=== PATIENT | male | born 1950 | race Caucasian/White ===

== ENCOUNTER → 2024-10-02 11:41 | Outpatient (REF) | payer MEDICARE, BC, SELFPAY ==
[2024-10-02 12:50] LABS: % Basophils 0.8 % (0-2); % Eosinophils 10.8 % (0-6); % Immature Granulocytes 0.2 % (0-0.5); % Lymphocytes 24.9 % (20.5-51.1); % Monocytes 9.1 % (1.7-9.3); % Neutrophils 54.2 % (42.2-75.2); Absolute Eosinophils 0.5 10^3/uL (0-0.7); Absolute Lymphocytes 1.2 10^3/uL (1.2-3.4); Absolute Monocytes 0.5 10^3/uL (0.1-0.6); Absolute Neutrophils 2.7 10^3/uL (1.4-6.5); Hematocrit 45.6 % (39.0-52.0); Hemoglobin 15.4 g/dL (13.0-18.0); Mean Corp Hgb Conc. 33.8 g/dL (33.0-37.0); Mean Corpuscular Volume 91.8 fL (80.0-94.0); Mean Platelet Volume 9.1 fL (7.4-10.4); Nucleated Red Blood Cells % 0 % (-); Platelet Count 198 10^3/uL (130-400); Red Blood Cell Count 4.97 10^6/uL (4.70-6.10); Red Cell Dist. Width 13.2 % (11.5-14.5); White Blood Cell Count 4.9 10^3/uL (4.8-10.8)
[2024-10-02 15:11] LABS: ALT (SGPT) 23 U/L (0-50); AST (SGOT) 29 U/L (17-59); Albumin 4.3 g/dl (3.5-5.0); Alkaline Phosphatase 81 U/L (38-126); Blood Urea Nitrogen 16 mg/dl (9-20); Calcium 9.3 mg/dl (8.4-10.2); Carbon Dioxide 25 mmol/L (22-30); Chloride 108 mmol/L (98-107); Glucose 74 mg/dl (70-99); Potassium 4.5 mmol/L (3.5-5.1); Sodium 142 mmol/L (135-145); Total Bilirubin 0.5 mg/dl (0.2-1.3); Total Protein 7.5 g/dl (6.3-8.2); eGFR > 60.00
== END ==
LOC: REG 11:41
PROVIDERS: ATTENDING PHYSICIAN Surgery
DX: C61 Malignant neoplasm of prostate (principal); K40.90 Unilateral inguinal hernia, without obstruction or gangrene, not specified as recurrent; R10.31 Right lower quadrant pain
CPT/HCPCS: 36415; 80053; 85025

== ENCOUNTER → 2024-10-06 07:28 | Outpatient (REF) | payer MEDICARE, BC, SELFPAY | LOC: RAD 07:28 | PROVIDERS: ATTENDING PHYSICIAN Surgery | DX: N13.2 Hydronephrosis with renal and ureteral calculous obstruction (principal); R10.31 Right lower quadrant pain; K40.90 Unilateral inguinal hernia, without obstruction or gangrene, not specified as recurrent | CPT/HCPCS: 74177; Q9967 ==

== ENCOUNTER → 2025-03-29 14:20 | Outpatient (REF) | payer MEDICARE, BC, SELFPAY | LOC: RAD 14:20 | PROVIDERS: ATTENDING PHYSICIAN Family Medicine | DX: Z85.46 Personal history of malignant neoplasm of prostate (principal); R10.22 Pelvic and perineal pain left side | CPT/HCPCS: 72170 ==